=== PATIENT | female | born 1950 | race Caucasian/White ===

== ENCOUNTER 2022-05-22 16:31 | Emergency (ER) | payer OTHER ==
[~2022-05-22 16:31] MED LIST: DAILY MULTIPLE1 EAC1 PO; KLONOPIN TAB 00.5 MG PO; NORCO 7.5-3251 EACH PO; PCCA T4 SODIUM D1 GM PO; Repatha; SINGULAIR10 MG PO; TRAMADOL HCL50 MG PO; TYLENOL 325MG325 MG PO; VITAMIN B-1000 MCG/M IM; XARELTO10 MG PO; ZOFRAN4 MG PO
[2022-05-22] MEDS ORDERED: HYDROCODON-ACE1 EAC4 PO (19:08)
== END 2022-05-22 19:46 | disposition home or self-care (01) ==
LOC: ER1 16:31
DX: S82.851A Displaced trimalleolar fracture of right lower leg, initial encounter for closed fracture (principal); E78.5 Hyperlipidemia, unspecified; W17.81XA Fall down embankment (hill), initial encounter
CPT/HCPCS: 29515; 73610; 73630; 99283